=== PATIENT | female | born 1940 | race Caucasian/White ===

== ENCOUNTER → 2018-11-01 | Outpatient (CLI) | payer MEDICARE, OTHER ==
[2017-05-20 15:44] VITALS: BMI 24.7
[~2018-11-01] MED LIST: ASPI-757 PO; BACL-1 PO; CALC-545 PO; CALC-635 PO; CALC-852 PO; COD1CAPS39 PO; DICL100G39 TOP; ESTROGEN PATCH TD; GLUC500C29 PO; GLUC750C3 PO; IBUP-136 PO; IBUP-1687 PO; IBUP-56 PO; MAGN100T PO; MAGN250T34 PO; MAGN27TA6 PO; METH4TAB66 PO; METO50TA19 PO; MULT-578 PO; MULT-768 PO; MULT1CAP59 PO; OMEG-11 PO; OMEG-23 PO; OXYC-373 PO; OXYC5CAP21 PO; OXYC5TAB38 PO; TRAM-420 PO; [UNRECOGNIZED DRUG - CODE] PO
--- NOTE | 2018-11-01 15:40 | RADIOLOGY IMAGING REPORT ---
FACILITY: [facility] - [place] PATIENT NAME: Gabrielle Otero : 1940 MR: [id number] V: [id number] EXAM DATE: ORDERING PHYSICIAN: DARRON BERUMEN TECHNOLOGIST: Location: [facility] - [place], [place] Patient: Gabrielle Otero : 1940 Visit/Account:[id number] Date of Sevice: 11/01/2018 Exam type: L-SPINE >4 VIEWS History: Pain low back and numbness bilateral buttocks Comparison: None. Findings: There are five nonrib-bearing lumbar-type vertebral bodies present. There is an S-shaped scoliosis o f the lumbar spine with extensive multilevel spondylotic changes. There is a 8 mm anterolisthesis of L4 with respect L5. There is a 7 mm retrolisthesis of L3 with respect L4. There are at least moder ate degenerative changes of the hip joints IMPRESSION: 1. S-shaped scoliosis of the lumbar spine with extensive multilevel spondylotic changes. MR may be helpful for further evaluation Report Dictated By: Deana Vilchis MD at 11/01/2018 3:32 PM Report E-Signed By: Deana Vilchis MD at 11/01/2018 3:34 PM WSN:[email or web address]
== END ==
LOC: RAD 11:04
PROVIDERS: ATTEND Nurse Practitioner Primary Care
DX: M41.86 Other forms of scoliosis, lumbar region (principal); M47.896 Other spondylosis, lumbar region; M16.0 Bilateral primary osteoarthritis of hip
CPT/HCPCS: 72120

== ENCOUNTER → 2018-12-21 | Outpatient (CLI) | payer MEDICARE, OTHER ==
[2017-05-20 15:44] VITALS: BMI 24.7
[~2018-12-21] MED LIST changes: +METO25TA23 PO
[2018-12-21 16:39] LABS: PLATELET COUNT, AUTOMATED 167 K/uL (150-450)
== END ==
LOC: LAB 16:18
PROVIDERS: ATTEND Family Medicine
DX: I10 Essential (primary) hypertension (principal)
CPT/HCPCS: 36415; 82040; 82247; 82310; 82374; 82435; 82565; 82947; 84075; 84132; 84155; 84295; 84443; 84450; 84460; 84520; 85025